=== PATIENT | female | born 1955 ===

== ENCOUNTER 2021-09-25 05:57 | Day surgery (SDC) | payer MEDICARE, BC ==
[2021-09-25] MEDS ORDERED: fentaNYL 100 MCG/2 ML SDV IV ONE ×3 (05:58→07:19)
[2021-09-25] MEDS ORDERED: Midazolam 1 MG/ML 2 ML SDV IV ONE ×5 (05:58→07:25)
[2021-09-25] MEDS ORDERED: Dextrose 5%-0.45% NaCl 1,000 ML IV SCH (06:00)
[2021-09-25] MEDS ORDERED: Midazolam 1 MG/ML 2 ML SDV ONE (06:19)
[2021-09-25] MEDS ORDERED: fentaNYL 100 MCG/2 ML SDV ONE (06:19)
[2021-09-25] MEDS ORDERED: Sodium Chloride 0.9% 10 ML Syringe FLUSH PRN (07:00)
[2021-09-25] MEDS ORDERED: Sodium Chloride 0.9% 10 ML Syringe FLUSH SCH (09:00)
== END 2021-09-25 09:48 | disposition home or self-care (01) ==
LOC: DL.ENDO 05:57
PROVIDERS: ATTEND Internal Medicine Gastroenterology
DX: Z12.11 Encounter for screening for malignant neoplasm of colon (principal); D12.2 Benign neoplasm of ascending colon; K57.30 Diverticulosis of large intestine without perforation or abscess without bleeding; K64.4 Residual hemorrhoidal skin tags; I10 Essential (primary) hypertension; F41.1 Generalized anxiety disorder; E80.6 Other disorders of bilirubin metabolism; Z88.2 Allergy status to sulfonamides
CPT/HCPCS: 45385; J2250; J3010; J7042